=== PATIENT | male | born 1990 | race Caucasian/White ===

== ENCOUNTER → 2023-04-12 | Outpatient (CLI) | payer SELFPAY ==
[~2023-04-12] MED LIST: BELPTAB PO; DIPH25; PROM25 PO
[2023-04-14 03:37] LABS: CHLAMYDIA TRACHOMATIS, NAA Negative (Negative)
[2023-04-15 07:08] LABS: HIV AB/P24 AG SCREEN Non Reactive (Non Reactive)
== END ==
LOC: LAB 16:30 → LAB SHORT 16:30
PROVIDERS: Physician Assistant
DX: Z20.2 Contact with and (suspected) exposure to infections with a predominantly sexual mode of transmission (principal)
CPT/HCPCS: 86592; 87389; 87491; 87591

== ENCOUNTER 2024-08-13 12:44 | Inpatient (IN) | payer OTHER ==
[~2024-08-13] VITALS: Ht 172.7 cm; Wt 66.7 kg
[2024-08-13] MEDS ORDERED: Acetaminophen 325 MG TABLET PO ONE (13:30)
[2024-08-13] MEDS ORDERED: NS 1,000 ML IV SCH (13:30)
[2024-08-13] MEDS ORDERED: AMOX250 PO (13:32)
[2024-08-13 13:55] LABS: BASOPHILS ABSOLUTE AUTO 0.09 K/mm3 (0.00-0.23); BASOPHILS PERCENT AUTO 0 % (0-2); EOSINOPHILS ABSOLUTE AUTO 0.49 K/mm3 (0.00-0.68); EOSINOPHILS PERCENT AUTO 2 % (0-6); Hematocrit 42.2 % (37.0-53.0); IMMATURE GRAN ABSOLUTE AUTO 0.09 K/mm3 (0.00-0.10); IMMATURE GRAN PERCENT AUTO 0 % (0-1); LYMPHOCYTES ABSOLUTE AUTO 0.91 K/mm3 (0.84-5.20); LYMPHOCYTES PERCENT AUTO 4 % (21-46); MONOCYTES ABSOLUTE AUTO 0.94 K/mm3 (0.16-1.47); MONOCYTES PERCENT AUTO 4 % (4-13); Mean Corpuscular HGB 32.5 pg (26.0-34.0); Mean Corpuscular HGB Conc 35.5 g/dL (31.5-36.5); Mean Corpuscular Volume 91 fL (80-100); Mean Platelet Volume 9.2 fL (9.1-12.4); NEUTROPHILS ABSOLUTE AUTO 18.66 K/mm3 (1.96-9.15); NEUTROPHILS PERCENT AUTO 88 % (41-73); Platelet Count 274 K/mm3 (150-400); RDW Coefficient Variation 12.5 % (11.7-14.2); RDW Standard Deviation 41.6 fL (35.1-46.3); Red Blood Cell Count 4.62 M/mm3 (4.30-5.90); White Blood Cell Count 21.18 K/mm3 (4.00-11.30)
[2024-08-13 14:27] LABS: Albumin, Blood 3.7 g/dL (3.4-5.0); Albumin/Globulin Ratio 1.2 (0.8-1.8); Bilirubin, Total 0.3 mg/dL (0.1-1.0); Bun/Creatinine Ratio 8.7 (12.0-20.0); Calcium, Blood 8.3 mg/dL (8.5-10.1); Creatinine, Blood 1.04 mg/dL (0.60-1.20); Globulin, Blood 3.2 g/dL (2.2-4.0); Potassium, Blood 3.4 mmol/L (3.5-5.5); Total Protein, Blood 6.9 g/dL (6.4-8.2)
[2024-08-13 14:53] LABS: CORONAVIRUS COVID-19 AG Negative (NEGATIVE); INFLUENZA A AG Negative (NEGATIVE); INFLUENZA B AG Negative (NEGATIVE)
[2024-08-13] MEDS ORDERED: LevoFLOXacin 750 MG/D5W 150ML 150 ML IV ONE (15:00)
[2024-08-13] MEDS ORDERED: Ketorolac Tromethamine 15mg Vial IV ONE (15:50)
[2024-08-13 16:28] LABS: Source, Urine Clean Catch
[2024-08-13 16:38] LABS: Appearance, Urine Clear (Clear); Bilirubin, Urine Neg (Neg); Blood, Urine Neg (Neg); Color, Urine Yellow (P-Yellow); Glucose Qualitative, Urine Neg (Neg); Ketones, Urine Neg (Neg); Leukocyte Esterase, Urine Neg (Neg); Nitrite, Urine Neg (Neg); Protein, Urine Neg (Neg); Urobilinogen, Urine NORM (Normal)
[2024-08-13] MEDS ORDERED: FLU VACC TS2024-25(6MOS UP)/PF 45 MCG/0.5 ML SYRINGE IM ONE (17:05)
[2024-08-13] MEDS ORDERED: Potassium Chloride 10 Meq Tablet SA PO ONE (17:10)
[2024-08-13] MEDS ORDERED: Acetaminophen 325 MG TABLET PO PRN (17:10)
[2024-08-13] MEDS ORDERED: Ketorolac Tromethamine 15mg Vial IV PRN (17:15)
[2024-08-13 19:09] VITALS: BP 109/78
[2024-08-13] MEDS ORDERED: Morphine Sulfate 4 MG/1 ML Injection IV PRN (19:55)
[2024-08-13] MEDS ORDERED: BUPROPION XL150 M1 PO (20:14)
[2024-08-13] MEDS ORDERED: AMPDEX10 (20:14)
[2024-08-13] MEDS ORDERED: Lactobacil 2-S.Thermo-Bifido 1 1 Cap PO SCH (21:00)
[2024-08-13] MEDS ORDERED: Ondansetron 4 MG SoluTab MM PRN (21:05)
[2024-08-13] MEDS ORDERED: Ondansetron HCl 2 MG / ML 2ML Vial IV PRN (21:05)
[2024-08-13] MEDS ORDERED: Docusate Sodium/Senna 1 Tab PO PRN (21:05)
[2024-08-13] MEDS ORDERED: CefTRIAXone Sodium 1,000 MG in NS 100 ML IV SCH (22:06)
[2024-08-13] MEDS ORDERED: NS 250 ML IV PRN (23:25)
[2024-08-14 03:46] VITALS: BP 104/71
--- NOTE | 2024-08-14 04:44 | NUR ---
PT C/O OF SOB AND PAIN IN R LUNG WHEN TAKING BREATHS. WORSE WITH DEEP BREATHS. TORADOL AND TYLENOL DECREASING PAIN LEVEL TO TOLERABLE LEVEL. MORPHINE WAS GIVEN AND NOT EFFECTIVELY MANAGING PAIN OR SOB. SPO2 DECREASE TO 86% ON RA PT PLACED ON 3L OF O2 SPO2 REMAINING AT 96%. PT RESTING COMFORTABLY.
[2024-08-14] MEDS ORDERED: NS 1,000 ML IV ONE (04:45)
[2024-08-14 04:55] LABS: Hematocrit 39.4 % (37.0-53.0); Hemoglobin 13.9 g/dL (13.5-17.5); Mean Corpuscular HGB 32.8 pg (26.0-34.0); Mean Corpuscular HGB Conc 35.3 g/dL (31.5-36.5); Mean Corpuscular Volume 93 fL (80-100); Mean Platelet Volume 9.9 fL (9.1-12.4); Platelet Count 239 K/mm3 (150-400); RDW Coefficient Variation 12.5 % (11.7-14.2); RDW Standard Deviation 42.6 fL (35.1-46.3); Red Blood Cell Count 4.24 M/mm3 (4.30-5.90); White Blood Cell Count 30.91 K/mm3 (4.00-11.30)
[2024-08-14] MEDS ORDERED: Nitroglycerin 0.4 MG SUBL SL PRN (04:55)
[2024-08-14 05:22] LABS: BAND PERCENT MAN 7 % (0-8); BASOPHILS PERCENT MAN 0 % (0-2); EOSINOPHILS PERCENT MAN 0 % (0-6); LYMPHOCYTES % ATYPICAL MANUAL 1 % (0-0); LYMPHOCYTES ABSOLUTE MAN 2.78 K/mm3 (0.84-5.20); LYMPHOCYTES PERCENT MAN 8 % (21-46); MONOCYTES ABSOLUTE MAN 0.92 K/mm3 (0.16-1.47); MONOCYTES PERCENT MAN 3 % (4-13); SEG NEUTROPHILS PERCENT MAN 81 % (41-73); TOTAL CELLS COUNTED 100
[2024-08-14 05:27] LABS: Albumin, Blood 2.6 g/dL (3.4-5.0); Albumin/Globulin Ratio 0.8 (0.8-1.8); Bilirubin, Total 0.3 mg/dL (0.1-1.0); Bun/Creatinine Ratio 18.1 (12.0-20.0); Calcium, Blood 8.1 mg/dL (8.5-10.1); Globulin, Blood 3.1 g/dL (2.2-4.0); Magnesium, Blood 1.8 mg/dL (1.6-2.4); Total Protein, Blood 5.7 g/dL (6.4-8.2)
[2024-08-14 07:26] VITALS: BP 98/72
[2024-08-14 08:29] LABS: Base Excess Venous 0.6 mmol/L; Bicarbonate Venous 24.3 mmol/L (24.0-30.0); PCO2 Venous 46.6 mmHg (38-42); pH Blood Venous 7.36 (7.34-7.37)
[2024-08-14] MEDS ORDERED: CefTRIAXone Sodium 1,000 MG in NS 100 ML IV SCH (09:00)
[2024-08-14 11:02] LABS: Hematocrit 39.9 % (37.0-53.0); Hemoglobin 13.7 g/dL (13.5-17.5); Mean Corpuscular HGB 32.1 pg (26.0-34.0); Mean Corpuscular HGB Conc 34.3 g/dL (31.5-36.5); Mean Corpuscular Volume 93 fL (80-100); Mean Platelet Volume 9.5 fL (9.1-12.4); Platelet Count 206 K/mm3 (150-400); RDW Coefficient Variation 12.6 % (11.7-14.2); RDW Standard Deviation 43.6 fL (35.1-46.3); Red Blood Cell Count 4.27 M/mm3 (4.30-5.90); White Blood Cell Count 27.18 K/mm3 (4.00-11.30)
[2024-08-14 11:48] LABS: BAND PERCENT MAN 5 % (0-8); BASOPHILS ABSOLUTE MAN 0.27 K/mm3 (0.00-0.23); BASOPHILS PERCENT MAN 1 % (0-2); EOSINOPHILS PERCENT MAN 0 % (0-6); LYMPHOCYTES ABSOLUTE MAN 2.98 K/mm3 (0.84-5.20); LYMPHOCYTES PERCENT MAN 11 % (21-46); MONOCYTES ABSOLUTE MAN 0.81 K/mm3 (0.16-1.47); MONOCYTES PERCENT MAN 3 % (4-13); SEG NEUTROPHILS PERCENT MAN 80 % (41-73); TOTAL CELLS COUNTED 100
[2024-08-14] MEDS ORDERED: LevoFLOXacin 750 MG Tab PO SCH (12:00)
[2024-08-14 12:49] LABS: Acinetobacter baumannii DNA Not Detected copy/mL (NOT DETECT); Enterobacter cloacae DNA Not Detected copy/mL (NOT DETECT); Escherichia coli DNA Not Detected copy/mL (NOT DETECT); Haemophilus influenzae DNA Not Detected copy/mL (NOT DETECT); Klebsiella aerogenes DNA Not Detected copy/mL (NOT DETECT); Klebsiella oxytoca DNA Not Detected copy/mL (NOT DETECT); Klebsiella pneumoniae DNA Not Detected copy/mL (NOT DETECT); Moraxella catarrhalis DNA Not Detected copy/mL (NOT DETECT); Proteus sp DNA Not Detected copy/mL (NOT DETECT); Pseudomonas aeruginosa DNA Not Detected copy/mL (NOT DETECT); Serratia marcescens DNA Not Detected copy/mL (NOT DETECT); Staphylococcus aureus DNA Not Detected copy/mL (NOT DETECT); Streptococcus agalactiae DNA Not Detected copy/mL (NOT DETECT); Streptococcus pneumoniae DNA Detected Bin >=10^7 copy/mL (NOT DETECT); Streptococcus pyogenes DNA Not Detected copy/mL (NOT DETECT)
[2024-08-14 12:50] LABS: Adenovirus DNA Not Detected (NOT DETECT); Chlamydia pneumonia Not Detected (NOT DETECT); Human Coronavirus RNA Not Detected (NOT DETECT); Human Metapneumovirus RNA Not Detected (NOT DETECT); Influenza virus A RNA Not Detected (NOT DETECT); Influenza virus B RNA Not Detected (NOT DETECT); Legionella pneumophila Not Detected (NOT DETECT); Mycoplasma pneumoniae Not Detected (NOT DETECT); Parainfluenza virus RNA Not Detected (NOT DETECT); Respiratory syncytial Vir RNA Detected (NOT DETECT); Rhinovirus+Enterovirus RNA Not Detected (NOT DETECT)
[2024-08-14 14:56] VITALS: BP 108/76
[2024-08-14 19:44] VITALS: BP 104/70
[2024-08-14] MEDS ORDERED: Azithromycin 500 MG in NS 250 ML IV SCH (22:01)
[2024-08-15 04:39] VITALS: BP 104/56
--- NOTE | 2024-08-15 04:50 | NUR ---
VSS, PT HAS BEEN INDEPENDENT IN RM. MOIST NON PRODUCTIVE COUGH. PT C/O PAIN IN R LUNG WHEN TAKING A DEEP BREATH. TYLENOL GIVEN FOR PAIN AND WAS EFFECTIVE. NO S/S OF ACUTE DISTRESS NOTED THIS SHIFT.
[2024-08-15 05:20] LABS: BASOPHILS ABSOLUTE AUTO 0.08 K/mm3 (0.00-0.23); BASOPHILS PERCENT AUTO 0 % (0-2); EOSINOPHILS ABSOLUTE AUTO 0.35 K/mm3 (0.00-0.68); EOSINOPHILS PERCENT AUTO 2 % (0-6); Hematocrit 39.2 % (37.0-53.0); Hemoglobin 13.3 g/dL (13.5-17.5); IMMATURE GRAN ABSOLUTE AUTO 0.15 K/mm3 (0.00-0.10); IMMATURE GRAN PERCENT AUTO 1 % (0-1); LYMPHOCYTES PERCENT AUTO 10 % (21-46); MONOCYTES ABSOLUTE AUTO 0.91 K/mm3 (0.16-1.47); MONOCYTES PERCENT AUTO 4 % (4-13); Mean Corpuscular HGB 31.9 pg (26.0-34.0); Mean Corpuscular HGB Conc 33.9 g/dL (31.5-36.5); Mean Corpuscular Volume 94 fL (80-100); Mean Platelet Volume 10.4 fL (9.1-12.4); NEUTROPHILS ABSOLUTE AUTO 19.53 K/mm3 (1.96-9.15); NEUTROPHILS PERCENT AUTO 84 % (41-73); Platelet Count 240 K/mm3 (150-400); RDW Coefficient Variation 12.8 % (11.7-14.2); Red Blood Cell Count 4.17 M/mm3 (4.30-5.90); White Blood Cell Count 23.22 K/mm3 (4.00-11.30)
[2024-08-15 05:52] LABS: Albumin, Blood 2.6 g/dL (3.4-5.0); Albumin/Globulin Ratio 0.8 (0.8-1.8); Bilirubin, Total 0.2 mg/dL (0.1-1.0); Bun/Creatinine Ratio 11.3 (12.0-20.0); Calcium, Blood 7.7 mg/dL (8.5-10.1); Creatinine, Blood 0.97 mg/dL (0.60-1.20); Globulin, Blood 3.1 g/dL (2.2-4.0); Total Protein, Blood 5.7 g/dL (6.4-8.2)
[2024-08-15] MEDS ORDERED: Azithromycin 500 MG in NS 250 ML IV SCH (06:41)
[2024-08-15 07:42] VITALS: BP 97/55
[2024-08-15 15:13] VITALS: BP 96/55
--- NOTE | 2024-08-15 18:00 | NUR ---
SHIFT SUMMARY PATIENT ALERT AND INTERACTIVE. PATIENT INDEPENDENT IN THE ROOM. PATIENT CONTINUES TO HAVE NONPRODUCTIVE COUGH. PATIENT SLEEPING MOST OF THE TIME. WHITE COUNT IMPROVING. PATIENT ASKING WHEN HE WILL GET TO GO HOME. REFUSING TO TAKE PROBIOTIC. STATES STOMACH HURTS AFTER TAKING.
[2024-08-15 19:23] VITALS: BP 91/63
[2024-08-16 04:18] VITALS: BP 95/65
--- NOTE | 2024-08-16 04:32 | NUR ---
SHIFT SUMMARY PATIENT IS ALERT AND ORIENTED. PATIENT HAS HAD NO ACUTE EVENTS THIS SHIFT. VITAL SIGNS REVIEWED. PATIENT HAS NO COMPLAINTS OF SOB, NAUSEA, VOMITTING OR PAIN THIS SHIFT. PATIENT HAS BEEN PLEASENT AND COOPERATIVE THIS SHIFT. PATIENT HAS BEEN IND WITH LITTLE NEEDS THIS SHIFT. BED IN LOCKED AND LOWEST POSITION. CALL LIGHT IN PLACE.
[2024-08-16 05:33] LABS: BASOPHILS PERCENT AUTO 1 % (0-2); EOSINOPHILS ABSOLUTE AUTO 0.44 K/mm3 (0.00-0.68); EOSINOPHILS PERCENT AUTO 3 % (0-6); Hematocrit 38.9 % (37.0-53.0); Hemoglobin 13.5 g/dL (13.5-17.5); IMMATURE GRAN ABSOLUTE AUTO 0.17 K/mm3 (0.00-0.10); IMMATURE GRAN PERCENT AUTO 1 % (0-1); LYMPHOCYTES ABSOLUTE AUTO 2.39 K/mm3 (0.84-5.20); LYMPHOCYTES PERCENT AUTO 16 % (21-46); MONOCYTES ABSOLUTE AUTO 0.74 K/mm3 (0.16-1.47); MONOCYTES PERCENT AUTO 5 % (4-13); Mean Corpuscular HGB 32.4 pg (26.0-34.0); Mean Corpuscular HGB Conc 34.7 g/dL (31.5-36.5); Mean Corpuscular Volume 93 fL (80-100); Mean Platelet Volume 10.4 fL (9.1-12.4); NEUTROPHILS ABSOLUTE AUTO 11.61 K/mm3 (1.96-9.15); NEUTROPHILS PERCENT AUTO 75 % (41-73); Platelet Count 299 K/mm3 (150-400); RDW Coefficient Variation 12.7 % (11.7-14.2); RDW Standard Deviation 43.5 fL (35.1-46.3); Red Blood Cell Count 4.17 M/mm3 (4.30-5.90); White Blood Cell Count 15.45 K/mm3 (4.00-11.30)
[2024-08-16 07:50] VITALS: BP 97/70
--- NOTE | 2024-08-16 11:00 | NUR ---
SHIFT SUMMARY AND DISCHARGE PATIENT ALERT AND INTERACTIVE. PATIENT INDEPENDENT IN THE ROOM. DISCHARGE ORDERS PLACED. DISCHARGE INSTRUCTIONS REVIEWED WITH PATIENT. IV DC'D. ROOM CHECK DONE WITH PATIENT. PATIENT AMBULATED OUT PER HIS REQUEST.
[2024-08-16] MEDS ORDERED: CEFP200 PO (12:16)
[2024-08-16] MEDS ORDERED: ONDA4ODT MM (12:17)
[2024-08-16] MEDS ORDERED: AZIT500 PO (12:17)
[2024-08-16] MEDS ORDERED: VISBIOME 112.51 EACH PO (12:18)
== END 2024-08-16 12:53 | disposition home or self-care (01) | DRG 871 ==
LOC: ER 12:44 → MEDS 12:45
PROVIDERS: Emergency Medicine; Student in an Organized Health Care Education/Training Program; ADMIT Family Medicine
DX: A40.3 Sepsis due to Streptococcus pneumoniae (principal); J12.1 Respiratory syncytial virus pneumonia; J96.01 Acute respiratory failure with hypoxia; J13 Pneumonia due to Streptococcus pneumoniae; R65.20 Severe sepsis without septic shock; J96.02 Acute respiratory failure with hypercapnia; E87.1 Hypo-osmolality and hyponatremia; R04.2 Hemoptysis; E87.6 Hypokalemia; R10.32 Left lower quadrant pain; Z88.5 Allergy status to narcotic agent; Z88.1 Allergy status to other antibiotic agents; Z88.0 Allergy status to penicillin; Z87.19 Personal history of other diseases of the digestive system; Z79.899 Other long term (current) drug therapy
CPT/HCPCS: 0528U; 36415; 71046; 74177; 80053; 81003; 82803; 83605; 83690; 83735; 83880; 84145; 85007; 85025; 85027; 85060; 85379; 87070; 87205; 87428-QW; 94762; 96361; 96365-59; 96366; 96375; 96376; 99285-25; A9270; G0378; J0456; J0696; J1885; J1956; J2270; J2405; J7030; J7050; Q9967

== ENCOUNTER → 2024-09-29 | Outpatient (CLI) | payer OTHER ==
[~2024-09-29] MED LIST changes: +AMOX250 PO; +AMPDEX10; +AZIT500 PO; +BUPROPION XL150 M1 PO; +CEFP200 PO; +ONDA4ODT MM; +VISBIOME 112.51 EACH PO
[2024-10-01 13:34] LABS: HIV 1,2 COMBO ANTIGEN/ANTIBODY Negative (Negative)
== END ==
LOC: LAB 11:40 → LAB SHORT 11:40
PROVIDERS: Physician Assistant
DX: N34.1 Nonspecific urethritis (principal); R30.0 Dysuria
CPT/HCPCS: 86592; 87389

== ENCOUNTER 2024-10-07 15:40 | Emergency (ER) | payer OTHER | END 2024-10-07 16:19 | disposition left against medical advice (07) | LOC: ER 15:40 | DX: R52 Pain, unspecified (principal); Z53.21 Procedure and treatment not carried out due to patient leaving prior to being seen by health care provider ==